=== PATIENT | female | born 1965 | race African-American/Black ===

== ENCOUNTER 2017-06-11 21:56 | Emergency (ER) | payer MEDICAID ==
[~2017-06-11] VITALS: Ht 177.8 cm; Wt 95.0 kg
[~2017-06-11 21:56] MED LIST: AMLO1TAB39 PO; ASPI-1159 PO; BENA20TA3 PO; CARV3.1242 PO; EMTR1TAB11 PO; LORA0.5T2 PO; OXCA300T31 PO; [UNRECOGNIZED DRUG - REMARK] PO
[2017-06-11] MEDS ORDERED: SODIUM CHLORIDE 0.9% 1,000 ML IV ONE (23:37)
[2017-06-12 00:02] LABS: BASOPHILS % 0.5 % (0.0-2.0); EOSINOPHILS % 2.5 % (0.0-5.0); HEMATOCRIT. 40.3 % (36.0-48.0); HEMOGLOBIN. 13.6 g/dL (12.0-16.0); LYMPHOCYTES % 49.8 % (20.0-50.0); MEAN CORPUSCULAR HEMOGLOBIN 28.1 pg (28.0-32.0); MEAN CORPUSCULAR VOLUME 83.3 fL (81.0-99.0); MEAN PLATELET VOLUME 6.8 fl (7.4-10.4); MONOCYTES % 8.3 % (2.0-8.0); NEUTROPHILS % 38.9 % (40.0-76.0); PLATELET 269 x1000/uL (130-400); RED BLOOD CELL COUNT 4.84 mill/uL (4.2-5.4); RED CELL DISTRIBUTION WIDTH 14.7 % (11.6-14.6)
[2017-06-12 00:06] LABS: CHLORIDE 109 mEq/L (98-107)
[2017-06-12] MEDS ORDERED: KETOROLAC 30MG/ML VIAL IV ONE (04:00)
[2017-06-12 04:12] VITALS: BP 153/92
== END 2017-06-12 05:02 | disposition home or self-care (01) ==
LOC: ER 22:09
DX: R07.9 Chest pain, unspecified (principal); I10 Essential (primary) hypertension; R53.1 Weakness; R05 Cough; Z88.0 Allergy status to penicillin; Z88.2 Allergy status to sulfonamides; Z79.82 Long term (current) use of aspirin; R06.2 Wheezing
CPT/HCPCS: 36415; 71045; 80053; 83880; 84484; 85025; 93005; 96361; 96374; 99285; J1885; J7030; Z7610

== ENCOUNTER 2018-01-25 13:45 | Inpatient (IN) | payer OTHER ==
[~2018-01-25] VITALS: Ht 177.8 cm; Wt 108.4 kg
[~2018-01-25 13:45] MED LIST changes: +ATOR20TA65 PO; +BACL-141 PO; +BENA20TA10 PO; -BENA20TA3 PO; +BICT1TAB PO; -EMTR1TAB11 PO; +LEVE500T78 PO; -LORA0.5T2 PO; -OXCA300T31 PO; +PANT40TA4 PO; -[UNRECOGNIZED DRUG - REMARK] PO
[2018-01-25 23:14] LABS: BASOPHILS % 0.5 % (0.0-2.0); EOSINOPHILS % 3.5 % (0.0-5.0); HEMATOCRIT. 43.6 % (36.0-48.0); HEMOGLOBIN. 14.5 g/dL (12.0-16.0); LYMPHOCYTES % 43.3 % (20.0-50.0); MEAN CORPUSCULAR VOLUME 84.1 fL (81.0-99.0); MEAN PLATELET VOLUME 7.6 fl (7.4-10.4); MONOCYTES % 9.7 % (2.0-8.0); PLATELET 242 x1000/uL (130-400); RED BLOOD CELL COUNT 5.18 mill/uL (4.2-5.4); RED CELL DISTRIBUTION WIDTH 14.7 % (11.6-14.6)
[2018-01-25 23:16] LABS: CHLORIDE 106 mEq/L (98-107)
[2018-01-25 23:20] LABS: D-DIMER 0.28 mg/L FEU (<0.50); PROTHROMBIN TIME 9.8 sec (9.1-11.1)
[2018-01-25 23:37] LABS: CLARITY URINE CLEAR (CLEAR); COLOR URINE YELLOW (YELLOW); KETONES URINE NEGATIVE (NEGATIVE); LEUKOCYTE ESTERASE URINE TRACE (NEGATIVE); NITRITE URINE NEGATIVE (NEGATIVE); OCCULT BLOOD URINE NEGATIVE (NEGATIVE); PROTEIN URINE NEGATIVE (NEGATIVE); SPECIFIC GRAVITY URINE 1.012 (1.005-1.030); UROBILINOGEN URINE 0.2 E.U./dL (0.2-1.0)
[2018-01-26] MEDS ORDERED: IOHEXOL-300 100 ML BOTTLE ONE (01:52)
[2018-01-26] MEDS: HYDROCODONE/ACETAMINOPHEN 5/325MG TABLET PO PRN ×3 (06:39→23:47)
[2018-01-26] MEDS ORDERED: ACETAMINOPHEN 325MG TABLET PO PRN (08:45)
[2018-01-26] MEDS ORDERED: HYDROCODONE/ACETAMINOPHEN 5/325MG TABLET PO PRN (08:45)
[2018-01-26] MEDS ORDERED: KETOROLAC 30MG/ML VIAL IV PRN (08:45)
[2018-01-26 10:10] VITALS: BP 111/70
[2018-01-26 10:15] LABS: CREATINE KINASE 112 IU/L (26-192)
[2018-01-26 10:16] LABS: CREATINE KINASE MB FRACTION 1.4 ng/mL (0.5-3.6)
[2018-01-26 10:20] VITALS: BP 111/70
[2018-01-26] MEDS ORDERED: AMLO5TAB88 PO (11:26)
[2018-01-26] MEDS ORDERED: IBUP-2030 MT (11:34)
[2018-01-26] MEDS ORDERED: GINK120C PO (11:34)
[2018-01-26] MEDS ORDERED: PANT40TA4 MT (11:34)
[2018-01-26] MEDS ORDERED: [UNRECOGNIZED DRUG - CODE] PO (11:34)
[2018-01-26] MEDS ORDERED: NITR0.4T49 SL (11:34)
[2018-01-26] MEDS ORDERED: ALBU18HF2 PO (11:34)
[2018-01-26] MEDS ORDERED: [UNRECOGNIZED DRUG - OTHER] PO (11:34)
[2018-01-26] MEDS ORDERED: FISH MT (11:34)
[2018-01-26] MEDS ORDERED: KEPP500 MT (11:34)
[2018-01-26] MEDS ORDERED: OXCA300T31 MT (11:34)
[2018-01-26] MEDS ORDERED: FOLI-43 MT (11:34)
[2018-01-26] MEDS ORDERED: CARV12.545 PO (11:34)
[2018-01-26] MEDS ORDERED: TOPI50TA24 MT (11:34)
[2018-01-26] MEDS ORDERED: GLUC-113 MT (11:34)
[2018-01-26] MEDS ORDERED: DICL100G31 TP (11:34)
[2018-01-26] MEDS ORDERED: MECL-109 PO (11:34)
[2018-01-26] MEDS ORDERED: OSCAL PO (11:34)
[2018-01-26 12:00] VITALS: BP 105/59
[2018-01-26 13:08] LABS: *AMPHETAMINES SCREEN URINE NEGATIVE (NEGATIVE); *BARBITURATES SCREEN URINE NEGATIVE (NEGATIVE); *BENZODIAZEPINES SCREEN URINE NEGATIVE (NEGATIVE)
[2018-01-26 13:09] LABS: *COCAINE SCREEN URINE NEGATIVE (NEGATIVE); CANNABINOID URINE SCREEN NEGATIVE (NEGATIVE); METHADONE URINE SCREEN NEGATIVE (NEGATIVE); OPIATES URINE SCREEN NEGATIVE (NEGATIVE); PHENCYCLIDINE URINE SCREEN NEGATIVE (NEGATIVE)
[2018-01-26 16:00] VITALS: BP 100/50
[2018-01-26 20:00] VITALS: BP 113/64
[2018-01-26] MEDS: TOPIRAMATE 100MG TABLET PO SCH (21:31)
[2018-01-26] MEDS: LEVETIRACETAM 500MG TABLET PO SCH (21:31)
[2018-01-27] VITALS: BP 129/83
[2018-01-27 04:00] VITALS: BP 133/85
[2018-01-27] MEDS: HYDROCODONE/ACETAMINOPHEN 5/325MG TABLET PO PRN ×3 (04:02→18:36)
[2018-01-27 08:03] VITALS: BP 115/79
[2018-01-27] MEDS: TOPIRAMATE 100MG TABLET PO SCH ×2 (08:45→20:16)
[2018-01-27] MEDS: AMLODIPINE 5MG TABLET PO SCH (08:46)
[2018-01-27] MEDS: BACLOFEN 10MG TABLET PO SCH (08:47)
[2018-01-27] MEDS: ASPIRIN 81MG TABLET PO SCH (08:47)
[2018-01-27] MEDS: LEVETIRACETAM 500MG TABLET PO SCH ×2 (08:47→20:16)
[2018-01-27] MEDS ORDERED: MEDICATION NOT ON FORMULARY EA (Aspirin (Aspirin Low Dose) 1 TAB) PO SCH (09:00)
[2018-01-27] MEDS ORDERED: MEDICATION NOT ON FORMULARY EA (Amlodipine Besylate 1 TAB) PO SCH (09:00)
[2018-01-27] MEDS ORDERED: MEDICATION NOT ON FORMULARY EA (Baclofen 10 MG) PO SCH (09:00)
[2018-01-27] MEDS ORDERED: MEDICATION NOT ON FORMULARY EA (Topiramate 1 TAB) MT SCH (09:00)
[2018-01-27 12:00] VITALS: BP 140/87
[2018-01-27] MEDS ORDERED: LORAZEPAM 2MG/ML CPJ IV PRN (15:00)
[2018-01-27 16:00] VITALS: BP 139/82
[2018-01-27] MEDS: OXCARBAZEPINE 300MG TABLET PO SCH ×2 (17:38→20:16)
[2018-01-27 19:26] LABS: BASOPHILS % 0.5 % (0.0-2.0); EOSINOPHILS % 1.1 % (0.0-5.0); HEMATOCRIT. 43.5 % (36.0-48.0); HEMOGLOBIN. 14.2 g/dL (12.0-16.0); LYMPHOCYTES % 32.6 % (20.0-50.0); MEAN CORPUSCULAR HEMOGLOBIN 27.5 pg (28.0-32.0); MEAN CORPUSCULAR VOLUME 84.5 fL (81.0-99.0); MEAN PLATELET VOLUME 7.7 fl (7.4-10.4); MONOCYTES % 8.8 % (2.0-8.0); PLATELET 262 x1000/uL (130-400); RED BLOOD CELL COUNT 5.15 mill/uL (4.2-5.4); RED CELL DISTRIBUTION WIDTH 14.4 % (11.6-14.6)
[2018-01-27 19:32] LABS: CHLORIDE 104 mEq/L (98-107)
[2018-01-27 20:00] VITALS: BP 122/79
[2018-01-28] VITALS: BP 137/87
[2018-01-28] MEDS: ONDANSETRON HCL 4MG/2ML INJ IV PRN ×2 (02:04→02:07)
[2018-01-28 04:00] VITALS: BP 145/89
[2018-01-28 08:00] VITALS: BP 136/85
[2018-01-28] MEDS: AMLODIPINE 5MG TABLET PO SCH (08:56)
[2018-01-28] MEDS: BACLOFEN 10MG TABLET PO SCH (08:57)
[2018-01-28] MEDS: LEVETIRACETAM 500MG TABLET PO SCH (08:57)
[2018-01-28] MEDS: ASPIRIN 81MG TABLET PO SCH (08:57)
[2018-01-28] MEDS: OXCARBAZEPINE 300MG TABLET PO SCH ×2 (08:57→12:09)
[2018-01-28] MEDS: TOPIRAMATE 100MG TABLET PO SCH (08:58)
[2018-01-28] MEDS ORDERED: MEDICATION NOT ON FORMULARY EA (Bictegrav/Emtricit/Tenofov Ala (Biktarvy 50-200-25 mg Ta PO SCH (09:00)
[2018-01-28 12:17] VITALS: BP 135/85
[2018-01-28 13:28] VITALS: BP 135/85
== END 2018-01-28 14:40 | disposition home or self-care (01) | DRG 203 ==
LOC: ER 13:45 → 8WST 01-26 01:18 → EDBEDREQ 01-26 01:20 → EDBEDREQTM 01-26 01:20 → ENRESERV 01-26 08:55
PROVIDERS: ADMIT Internal Medicine; ATTEND Internal Medicine
DX: M94.0 Chondrocostal junction syndrome [Tietze] (principal); I42.9 Cardiomyopathy, unspecified; I50.22 Chronic systolic (congestive) heart failure; I11.0 Hypertensive heart disease with heart failure; E44.1 Mild protein-calorie malnutrition; G89.29 Other chronic pain; R10.9 Unspecified abdominal pain; G40.909 Epilepsy, unspecified, not intractable, without status epilepticus; E66.9 Obesity, unspecified; Z88.0 Allergy status to penicillin; Z88.1 Allergy status to other antibiotic agents; Z68.34 Body mass index [BMI] 34.0-34.9, adult; Z79.899 Other long term (current) drug therapy; Z79.82 Long term (current) use of aspirin
CPT/HCPCS: 36415; 71045; 74177; 80048; 80305; 82550; 82553; 83880; 84484; 85379; 93005; 99285; J1885; J2405; Q9967